=== PATIENT | female | born 1985 | race Hispanic/Latino ===

== ENCOUNTER → 2018-04-11 | Outpatient (CLI) | payer SELFPAY ==
[2018-04-11 13:24] LABS: BASO % 0.4 % (0.0-1.0); EOS # 0.1 10^3/uL (0.0-0.50); EOS % 1.1 % (0.0-3.0); HEMOGLOBIN 11.8 g/dl (12.0-15.5); IMMATURE GRANULOCYTE % 0.4 % (0-3.0); LYMPH # 2.1 10^3/uL (1.5-4.5); LYMPH % 20.8 % (24.0-44.0); MEAN CORPUSCULAR HEMOGLOBIN 30.9 pg (27.0-33.0); MEAN CORPUSCULAR HGB CONC 33.7 g/dl (32.0-36.5); MEAN CORPUSCULAR VOLUME 91.6 fl (80.0-96.0); MONO # 0.5 10^3/uL (0.0-0.8); MONO % 4.5 % (0.0-5.0); NEUTROPHILS # 7.3 10^3/uL (1.8-7.7); NEUTROPHILS % 72.8 % (36.0-66.0); PLATELET COUNT, AUTOMATED 330 10^3/uL (150-450); RED BLOOD COUNT 3.82 10^6/uL (4.00-5.40); RED CELL DISTRIBUTION WIDTH 12.5 % (11.5-14.5)
[2018-04-11 14:20] LABS: HEPATITIS C VIRUS ABY INDEX < 0.0 INDEX (<0.8)
[2018-04-11 14:20] LABS: HBsAg Prenatal NEGATIVE (NEGATIVE); HIV 1&2 SCREEN CENTAUR NEGATIVE (NEGATIVE); RUBELLA IgG QUALITATIVE IMMUNE (IMMUNE)
[2018-04-11 15:07] LABS: CHLAMYDIA DNA AMPLIFICATION POSITIVE (NEGATIVE); GC DNA AMPLIFICATION NEGATIVE (NEGATIVE)
== END ==
LOC: M SMT 09:44
DX: Z3A.15 15 weeks gestation of pregnancy (principal)

== ENCOUNTER → 2018-04-15 | Outpatient (CLI) | payer SELFPAY | LOC: M RAD 11:23 | DX: Z36.9 Encounter for antenatal screening, unspecified (principal); Z3A.20 20 weeks gestation of pregnancy | CPT/HCPCS: 76811 ==

== ENCOUNTER → 2018-05-13 | Outpatient (REF) | payer SELFPAY ==
[2018-05-13 15:32] LABS: CHLAMYDIA DNA AMPLIFICATION POSITIVE (NEGATIVE); GC DNA AMPLIFICATION NEGATIVE (NEGATIVE)
== END ==
LOC: M LAB REF 13:22
DX: Z34.82 Encounter for supervision of other normal pregnancy, second trimester (principal)

== ENCOUNTER → 2018-05-24 | Outpatient (CLI) | payer SELFPAY | LOC: M RAD 16:45 | DX: Z34.82 Encounter for supervision of other normal pregnancy, second trimester (principal) | CPT/HCPCS: 76816 ==

== ENCOUNTER → 2018-06-03 | Outpatient (CLI) | payer SELFPAY ==
[2018-06-03 18:02] LABS: HEMATOCRIT 33.2 % (36.0-47.0); HEMOGLOBIN 11.1 g/dl (12.0-15.5); MEAN CORPUSCULAR HEMOGLOBIN 30.4 pg (27.0-33.0); MEAN CORPUSCULAR HGB CONC 33.4 g/dl (32.0-36.5); PLATELET COUNT, AUTOMATED 376 10^3/uL (150-450); RED BLOOD COUNT 3.65 10^6/uL (4.00-5.40); RED CELL DISTRIBUTION WIDTH 13.2 % (11.5-14.5); WHITE BLOOD COUNT 9.6 10^3/uL (4.0-10.0)
[2018-06-03 18:37] LABS: GLUCOSE CHALLENGE TEST 1 HOUR 144 MG/DL (LESS THAN 140)
== END ==
LOC: M SMT 13:00
DX: Z36.89 Encounter for other specified antenatal screening (principal)
CPT/HCPCS: 82950

== ENCOUNTER → 2018-07-08 | Outpatient (REF) | payer SELFPAY ==
[2018-07-08 20:34] LABS: CHLAMYDIA DNA AMPLIFICATION NEGATIVE (NEGATIVE); GC DNA AMPLIFICATION NEGATIVE (NEGATIVE)
== END ==
LOC: M LAB REF 17:16
PROVIDERS: ATTEND Advanced Practice Midwife
DX: Z34.83 Encounter for supervision of other normal pregnancy, third trimester (principal)

== ENCOUNTER → 2018-07-28 | Outpatient (REF) | payer SELFPAY ==
[2018-07-28 13:18] LABS: APPEARANCE, URINE HAZY (CLEAR); BACTERIA, URINE AUTO 2+ (NEGATIVE); BILIRUBIN, URINE AUTO NEGATIVE (NEGATIVE); BLOOD, URINE BLOOD 1+ (NEGATIVE); COLOR, URINE YELLOW (YELLOW); GLUCOSE, URINE (UA) AUTO NEGATIVE (NEGATIVE); KETONE, URINE AUTO NEGATIVE (NEGATIVE); LEUKOCYTE ESTERASE, URINE AUTO 3+ (NEGATIVE); MUCUS, URINE SMALL (NEGATIVE); NITRITE, URINE AUTO NEGATIVE (NEGATIVE); PROTEIN, URINE AUTO NEGATIVE (NEGATIVE); RBC, URINE AUTO 10 /HPF (0-3); SPECIFIC GRAVITY URINE AUTO 1.014 (1.002-1.035); SQUAMOUS EPITHELIAL CELL UR AU 13 /HPF (0-6); UROBILINOGEN, URINE AUTO 0.2 mg/dL (0.0-2.0); WBC, URINE AUTO 20 /HPF (0-3)
[2018-07-28 14:56] LABS: CHLAMYDIA DNA AMPLIFICATION NEGATIVE (NEGATIVE); GC DNA AMPLIFICATION NEGATIVE (NEGATIVE)
== END ==
LOC: M LAB REF 12:52
PROVIDERS: ATTEND Obstetrics & Gynecology
DX: Z34.83 Encounter for supervision of other normal pregnancy, third trimester (principal); Z3A.00 Weeks of gestation of pregnancy not specified

== ENCOUNTER → 2018-08-09 | Outpatient (REF) | payer SELFPAY | LOC: M LAB REF 12:52 | PROVIDERS: ATTEND Specialist | DX: Z34.83 Encounter for supervision of other normal pregnancy, third trimester (principal); Z3A.00 Weeks of gestation of pregnancy not specified ==

== ENCOUNTER 2018-09-03 06:48 | Inpatient (IN) | payer SELFPAY ==
[~2018-09-03] VITALS: Ht 165.1 cm; Wt 75.6 kg
[2018-09-03] VITALS (10 sets, daily range): BP systolic 101–127; BP diastolic 56–73
[2018-09-03] MEDS ORDERED: LR 1,000 ML IV SCH (07:15)
[2018-09-03] MEDS ORDERED: LACTATED RINGER'S 1000 ML IV STA (07:15)
--- NOTE | 2018-09-03 07:34 | HPE ---
DATE OF ADMISSION: 09/03/2018 33-year-old G2, P1 female, 39-6/7 weeks gestation by LMP consistent with 15 week ultrasound, EDC 09/04/2018, presents with contractions every 2-3 minutes. It started in the middle of the night approximately 3 a.m. on the day of admission. Denies leaking of fluid or vaginal bleeding. COURSE: Patient initiated care at 15 weeks gestation on 03/17/2018. Her blood pressure was 112/72, weight was 144 pounds. She was treated for chlamydia as was her after her first visit. She had a negative test of cure for chlamydia. Patient is [place] speaking, her translated at most visits. OBSTETRICAL HISTORY: . April 2009, 40 week vaginal delivery 6 pound 6 ounce male , no complications. MEDICAL HISTORY: None. SURGICAL HISTORY: None. ALLERGIES: None. SOCIAL HISTORY: Patient denies cigarettes, alcohol or drug use. Patient is from [place]. She is [place] speaking. FAMILY HISTORY: Noncontributory. PHYSICAL EXAMINATION: Blood pressure 124/82, pulse 84. She appears uncomfortable. Head and neck exam normal. Lungs clear. Heart: Regular rate and rhythm. Abdomen: Nontender, gravid. heart tones category I. Sterile vaginal exam: 8 cm, 100%, -1, intact vertex. Extremities: Nontender. LABS: Blood type O positive, rubella immune, RPR nonreactive. Hepatitis B and C negative. HIV negative. Group B Streptococcus (GBS) negative 08/09/2018. ASSESSMENT: 33-year-old G2, P1 female at 39-6/7 weeks gestation presents in active labor. PLAN: Patient will be admitted on 09/03/2018.
[2018-09-03 07:41] LABS: HEMATOCRIT 35.8 % (36.0-47.0); HEMOGLOBIN 12.5 g/dl (12.0-15.5); MEAN CORPUSCULAR HEMOGLOBIN 30.8 pg (27.0-33.0); MEAN CORPUSCULAR HGB CONC 34.9 g/dl (32.0-36.5); MEAN CORPUSCULAR VOLUME 88.2 fl (80.0-96.0); PLATELET COUNT, AUTOMATED 306 10^3/uL (150-450); RED BLOOD COUNT 4.06 10^6/uL (4.00-5.40); WHITE BLOOD COUNT 11.8 10^3/uL (4.0-10.0)
[2018-09-03] MEDS ORDERED: OXYTOCIN 30 UNITS IN 0.9% NaCl 500ML IV BAG (J2590) As Ordered ONE (08:06)
[2018-09-03] MEDS: PRENATAL VITAMINS CHEWABLE TABLET PO SCH (09:00)
[2018-09-03] MEDS ORDERED: ONDANSETRON 4MG/2ML VIAL (J2405) IV PRN (09:15)
[2018-09-03] MEDS ORDERED: METHYLERGONOVINE MALEATE 0.2 MG TAB PO PRN (09:15)
[2018-09-03] MEDS ORDERED: RHOGAM 300 MCG (1500 IU) INJ (J2790) IM SCH (09:15)
[2018-09-03] MEDS ORDERED: DIBUCAINE 1% OINTMENT 30GM TOP PRN (09:15)
[2018-09-03] MEDS ORDERED: MEASLES,MUMPS,RUBELLA VACCINE INJ (MMR-II) (90707) SC SCH (09:15)
[2018-09-03] MEDS ORDERED: OXYTOCIN DRIP 30 UNITS in APPROPRIATE DILUENT 1 EA IV ONE (09:30)
[2018-09-03] MEDS ORDERED: LIDOCAINE 1% MDV 20ML VIAL SC ONE (10:00)
[2018-09-03] MEDS: IBUPROFEN 800 MG TAB PO PRN ×2 (12:48→19:38)
[2018-09-03] MEDS: DOCUSATE SODIUM 100 MG CAP PO PRN (19:37)
[2018-09-03] MEDS: ACETAMINOPHEN 500 MG TAB PO PRN (21:49)
[2018-09-04 06:00] VITALS: BP 102/52
[2018-09-04] MEDS: IBUPROFEN 800 MG TAB PO PRN ×2 (06:02→17:20)
[2018-09-04] MEDS ORDERED: IBUP-1114 PO (07:38)
[2018-09-04] MEDS ORDERED: MAPA500T2 PO (07:38)
[2018-09-04] MEDS: PRENATAL VITAMINS CHEWABLE TABLET PO SCH (09:00)
[2018-09-04 18:03] VITALS: BP 104/63
[2018-09-04] MEDS: ACETAMINOPHEN 500 MG TAB PO PRN (19:29)
[2018-09-05] MEDS: IBUPROFEN 800 MG TAB PO PRN ×2 (02:14→12:06)
[2018-09-05 06:00] VITALS: BP 99/58
[2018-09-05] MEDS: PRENATAL VITAMINS CHEWABLE TABLET PO SCH (09:21)
[2018-09-05] MEDS: DOCUSATE SODIUM 100 MG CAP PO PRN (10:22)
--- NOTE | 2018-09-05 11:15 | DN ---
DATE OF DELIVERY: 09/03/2018 PREDELIVERY DIAGNOSIS: 39-6/7 weeks gestation, labor. POSTDELIVERY DIAGNOSIS: Delivered. PROCEDURE: Spontaneous vaginal delivery. SPORTS BOOKMAKER: Hernan Baron MD ANESTHESIA: None. ESTIMATED BLOOD LOSS: 500 mL. FINDINGS: 8 pound 10 ounce (3910 gram) female . score 9 and 9. DELIVERY SUMMARY: After a short second stage for approximately 5 minutes, the patient had a spontaneously delivery of an 8 pound 10 ounce female infant, score 9 and 9, with no delivery anesthesia. Loose nuchal cord times one was delivered through. The shoulders delivered with ease. The was handed to the mother. The cord was doubly clamped and cut. Placenta delivered spontaneously and appeared to be intact. A second-degree perineal laceration was repaired with #2-0 chromic under local anesthesia in the usual fashion. Estimated blood loss 500 mL. Sponge and needle counts were correct.
== END 2018-09-05 12:20 | disposition home or self-care (01) | DRG 560 ==
LOC: M LDO 06:48 → M LDI 07:12 → M OBS 13:14
PROVIDERS: ADMIT Specialist; ATTEND Specialist
PROC: 10E0XZZ Delivery of Products of Conception, External Approach (ICD-10-PCS; principal; 2018-09-03)
PROC: 0KQM0ZZ Repair Perineum Muscle, Open Approach (ICD-10-PCS; 2018-09-03)
DX: O69.81X0 Labor and delivery complicated by cord around neck, without compression, not applicable or unspecified (principal); Z3A.39 39 weeks gestation of pregnancy; O70.1 Second degree perineal laceration during delivery; Z37.0 Single live birth

== ENCOUNTER → 2019-01-11 | Outpatient (REF) | payer OTHER, SELFPAY ==
[~2019-01-11] MED LIST: IBUP-1114 PO; MAPA500T2 PO
== END ==
LOC: M LAB REF 17:59
PROVIDERS: ATTEND Advanced Practice Midwife
DX: R30.0 Dysuria (principal)

== ENCOUNTER → 2019-01-11 | Outpatient (CLI) | payer OTHER, SELFPAY ==
[2019-01-11 20:10] LABS: HCG, SERUM QUALITATIVE NEGATIVE (NEGATIVE)
== END ==
LOC: M SMT 14:54
PROVIDERS: ATTEND Advanced Practice Midwife
DX: N92.6 Irregular menstruation, unspecified (principal)

== ENCOUNTER → 2019-01-17 | Outpatient (REF) | payer OTHER, SELFPAY ==
[2019-01-21 14:09] LABS: HPV HYBRID CAPTURE II Negative (Negative)
== END ==
LOC: M LAB REF 17:11
PROVIDERS: ATTEND Specialist
DX: Z12.4 Encounter for screening for malignant neoplasm of cervix (principal); R85.611 Atypical squamous cells cannot exclude high grade squamous intraepithelial lesion on cytologic smear of anus (ASC-H); R87.610 Atypical squamous cells of undetermined significance on cytologic smear of cervix (ASC-US)
CPT/HCPCS: 87624; G0123